=== PATIENT | female | born 1990 | race African-American/Black ===

== ENCOUNTER 2016-11-16 00:39 | Emergency (ER) | payer MEDICAID ==
[~2016-11-16 00:39] MED LIST: BACTRIM DS TAB1 EAC2 PO; FLAGYL500 MG PO; IRON1 TA1 PO; NORCO 5/325 TAB1 TAB PO; NORCO 5/3251 TAB PO; PRENATAL1 EACH PO
[2016-11-16 01:21] LABS: URINE BILIRUBIN NEGATIVE (NEG); URINE BLOOD LARGE (NEG); URINE GLUCOSE (UA) NEGATIVE (NEG); URINE KETONE NEGATIVE (NEG); URINE LEUKOCYTE ESTERASE POSITIVE (NEG); URINE NITRITE NEGATIVE (NEG); URINE PROTEIN MODERATE (NEG); URINE SPECIFIC GRAVITY 1.025 (1.003-1.030)
[2016-11-16 01:24] LABS: URINE APPEARANCE CLOUDY; URINE COLOR YELLOW
[2016-11-16 01:27] LABS: URINE BACTERIA 1+; URINE MUCUS 2+; URINE RBC 30-40 /[HPF] (0-5); URINE WBC 50-60 /[HPF] (0-5)
[2016-11-16] MEDS ORDERED: MACROBID 100 M100 M1 PO (01:42)
== END 2016-11-16 02:17 ==
LOC: EDMED 00:39
PROVIDERS: Emergency Medicine
DX: N39.0 Urinary tract infection, site not specified (principal); Z88.0 Allergy status to penicillin; F17.210 Nicotine dependence, cigarettes, uncomplicated; Z98.890 Other specified postprocedural states

== ENCOUNTER 2016-12-12 14:32 | Emergency (ER) | payer MEDICAID ==
[~2016-12-12 14:32] MED LIST changes: +MACROBID 100 M100 M1 PO
[2016-12-12] MEDS ORDERED: NO HOME MEDICATION XX (15:21)
[2016-12-12] MEDS ORDERED: NORCO 5-325 TA1 EACH PO (15:42)
[2016-12-12] MEDS ORDERED: CLINDAMYCIN HC150 M1 PO (15:44)
== END 2016-12-12 16:21 ==
LOC: EDMED 14:32
DX: K08.89 Other specified disorders of teeth and supporting structures (principal); Z88.0 Allergy status to penicillin

== ENCOUNTER 2017-01-14 08:44 | Emergency (ER) | payer MEDICAID ==
[~2017-01-14 08:44] MED LIST changes: +CLINDAMYCIN HC150 M1 PO; +NO HOME MEDICATION XX; +NORCO 5-325 TA1 EACH PO
[2017-01-14 11:04] LABS: URINE BILIRUBIN NEGATIVE (NEG); URINE BLOOD NEGATIVE (NEG); URINE GLUCOSE (UA) NEGATIVE (NEG); URINE KETONE NEGATIVE (NEG); URINE LEUKOCYTE ESTERASE POSITIVE (NEG); URINE NITRITE NEGATIVE (NEG); URINE PROTEIN NEGATIVE (NEG)
[2017-01-14 11:07] LABS: URINE APPEARANCE CLEAR; URINE COLOR PALE YELLOW
[2017-01-14 11:25] LABS: URINE BACTERIA 2+
[2017-01-14 11:26] LABS: URINE RBC 0-1 /[HPF] (0-5)
[2017-01-14] MEDS ORDERED: FLAGYL500 M1 PO (12:34)
== END 2017-01-14 12:47 ==
LOC: EDMED 08:44
PROVIDERS: Physician Assistant
DX: N76.0 Acute vaginitis (principal)